=== PATIENT | female | born 1960 | race Caucasian/White ===

== ENCOUNTER 2017-06-03 13:45 | Inpatient (IN) | payer MEDICARE ==
[~2017-06-03] VITALS: Ht 154.9 cm; Wt 83.5 kg
[2017-06-03 13:40] VITALS: BP 186/77
[2017-06-03] MEDS ORDERED: fentaNYL PF VIAL 100 MCG/2 ML VIAL IV PRN (14:00)
[2017-06-03] MEDS ORDERED: fentaNYL PF VIAL 100 MCG/2 ML VIAL IV ONE (14:00)
[2017-06-03] MEDS: IV NORMAL SALINE 1000ML BAG 1,000 ML IV SCH ×2 (14:00→22:01)
[2017-06-03] MEDS ORDERED: ONDANSETRON PF 4 MG/2 ML VIAL. IV PRN (14:00)
[2017-06-03] MEDS: KETOROLAC 15 MG/ML VIAL. IV PRN (14:07)
[2017-06-03] MEDS ORDERED: ACETAMINOPHEN 325 MG TABLET. PO PRN (14:15)
[2017-06-03] MEDS ORDERED: BUPR300T3 PO (14:36)
[2017-06-03] MEDS ORDERED: TRAM50TA PO (14:36)
[2017-06-03] MEDS ORDERED: ATOR40TA59 PO (14:36)
[2017-06-03] MEDS ORDERED: GABA-586 PO (14:36)
[2017-06-03] MEDS ORDERED: ASPI325T8 PO (14:36)
[2017-06-03] MEDS ORDERED: NIFE60TA16 PO (14:36)
[2017-06-03] MEDS ORDERED: CYCL10TA2 PO (14:36)
[2017-06-03] MEDS ORDERED: OMEP20CA9 PO (14:36)
[2017-06-03] MEDS ORDERED: SUCR1TAB PO (14:36)
[2017-06-03 15:30] VITALS: BP 147/72
[2017-06-03] MEDS ORDERED: PROCHLORPERAZINE 10 MG/2 ML VIAL. IV ONE (16:30)
[2017-06-03] MEDS: fentaNYL PF VIAL 100 MCG/2 ML VIAL IV PRN ×3 (16:43→23:43)
[2017-06-03] MEDS: HYDROmorphone 2 MG/ML VIAL IV PRN ×2 (17:51→22:09)
[2017-06-03] MEDS ORDERED: HYDROmorphone 2 MG/ML VIAL IV ONE (19:00)
[2017-06-03] MEDS ORDERED: CYCLOBENZAPRINE 10 MG TABLET. PO PRN (19:15)
[2017-06-03] MEDS ORDERED: SALIVA STIMULANT AGENT 44ML SPRAY BOTTLE. PO PRN (19:15)
--- NOTE | 2017-06-03 19:17 | PDOC1 ---
History and Physical Date of Admission Date of Admission DATE: 06/03/17 TIME: 19:12 History of Present Illness History of Present Illness pt seen in [facility] earlier today, transferred here for acute abd pain CT scan there showed cholelithiasis, with poss. dilation of CBD, her abd pain started < 24 hours acute pain, stabbing 10/10, to RUQ, but diffuse across abdomen, + nausea and vomiting, + chills and feels febrile 200 mg IV fentanyl did not improve her pain no travel or sick contacts, no GI history, IV dilaudid 1.5 mg has improved pain to 7/10 Past Medical History Past Medical History COPD, no meds, Fibromyalgia, Raynauds Musculoskeletal: low back pain, Osteoarthritis Rheumatologic: Fibromyalgia Past Surgical History Past Surgical History: No pertinent history Family History Family History: Hypertension Social History Smoke: No ALCOHOL: none Drugs: None Current Medications Current Medications Current Medications Ketorolac Tromethamine (Toradol) 15 mg PRN Q6HRS PRN IV PAIN Last administered on 06/03/17 14:07; Start 06/03/17 at 14:00; Stop 06/08/17 at 13:59 Fentanyl Citrate (Fentanyl 2ml Vial) 75 mcg PRN Q2HR PRN IV PAIN Last administered on 06/03/17 15:24; Start 06/03/17 at 14:00; Stop 06/03/17 at 16:25; Status DC Fentanyl Citrate (Fentanyl 2ml Vial) 100 mcg 1X ONCE IV Last administered on 14:01; Start 06/03/17 at 14:00; Stop 06/03/17 at 14:01; Status DC Sodium Chloride 1,000 ml @ 125 mls/hr Q8H IV Last administered on 06/03/17 14: 00; Start 06/03/17 at 14:00 Ondansetron HCl (Zofran) 4 mg PRN Q6HRS PRN IV NAUSEA/VOMITING Last administered on 06/03/17 14:00; Start 06/03/17 at 14:00; Stop 06/03/17 at 16:25; Status DC Acetaminophen (Tylenol) 650 mg PRN Q6HRS PRN PO MILD PAIN / TEMP; Start at 14:15 Fentanyl Citrate (Fentanyl 2ml Vial) 100 mcg PRN Q2HR PRN IV PAIN Last administered on 06/03/17 16:43; Start 06/03/17 at 16:30 Ondansetron HCl (Zofran) 8 mg PRN Q8HRS PRN IV NAUSEA/VOMITING; Start 06/04/17 at 14:00 Prochlorperazine Edisylate (Compazine) 10 mg 1X ONCE IV Last administered on 16:43; Start 06/03/17 at 16:30; Stop 06/03/17 at 16:31; Status DC Hydromorphone HCl (Dilaudid) 1.5 mg PRN Q3HRS PRN IV PAIN Last administered on 06/03/17 17:51; Start 06/03/17 at 17:00 Hydromorphone HCl (Dilaudid) 2 mg 1X ONCE IV Last administered on 06/03/17 19: 00; Start 06/03/17 at 19:00; Stop 06/03/17 at 19:01; Status DC Saliva Substitute (Biotene Moisturizing Mouth) 2 spray PRN Q15MIN PRN PO DRY MOUTH; Start 06/03/17 at 19:15 Albuterol/ Ipratropium (Duoneb) 3 ml BID NEB ; Start 06/03/17 at 21:00 Cyclobenzaprine HCl (Flexeril) 10 mg PRN Q6HRS PRN PO MUSCLE SPASMS; Start 06/03 at 19:15 Active Scripts Active Reported Omeprazole 20 Mg Capsule.dr 1 Cap PO BID Atorvastatin Calcium 40 Mg Tablet 1 Tab PO QHS Cyclobenzaprine Hcl 10 Mg Tablet 1 Tab PO QHS Sucralfate 1 Gm Tablet 1 Tab PO QID Gabapentin 300 Mg Capsule 300 Mg PO TID Aspirin 325 Mg Tablet 325 Tab PO DAILY Nifedipine Er (Nifedipine) 60 Mg Tab.er.24 1 Tab PO DAILY Wellbutrin Xl (Bupropion Hcl) 300 Mg Tab.er.24h 1 Tab PO DAILY Tramadol Hcl 50 Mg Tablet 1 Tab PO BID Allergies Allergies: Coded Allergies: No Known Drug Allergies (Unverified , 06/03/17) ROS General: YES: Chills, Fatigue, No: Night Sweats, Malaise, Appetite, Other PSYCHOLOGICAL ROS: No: Anxiety, Behavioral Disorder, Concentration difficultie , Decreased libido, Depression, Disorientation, Hallucinations, Hostility, Irritablity, Memory difficulties, Mood Swings, Obsessive thoughts, Physical abuse, Sexual abuse, Sleep disturbances, Suicidal ideation, Other Eyes: No Blurry vision, No Decreased vision, No Double vision, No Dry eyes, No Excessive tearing, No Eye Pain, No Itchy Eyes, No Loss of vision, No Photophobia , No Scotomata, No Uses contacts, No Uses glasses, No Other HEENT: No: Heacaches, Visual Changes, Hearing change, Nasal congestion, Nasal discharge, Oral lesions, Sinus pain, Sore Throat, Epistaxis, Sneezing, Snoring, Tinnitus, Vertigo, Vocal changes, Other Respiratory: No: Cough, Hemoptysis, Orthopnea, Pleuritic Pain, Shortness of breath, SOB with excertion, Sputum Changes, Stridor, Tachypnea, Wheezing, Other Cardiovascular: No Chest Pain, No Palpitations, No Orthopnea, No Paroxysmal Noc. Dyspnea, No Edema, No Lt Headedness, No Other Gastrointestinal: Yes Nausea, Yes Vomiting, Yes Abdominal Pain, No Diarrhea, No Constipation, No Other Genitourinary: No Dysuria, No Frequency, No Incontinence, No Hematuria, No Retention, No Discharge, No Urgency, No Pain, No Flank Pain, No Other, No , No , No , No , No , No , No Musculoskeletal: No Gait Disturbance, No Joint Pain, No Joint Stiffness, No Joint Swelling, No Muscle Pain, No Muscular Weakness, No Pain In:, No Swelling In:, No Other Neurological: No Behavorial Changes, No Bowel/Bladder ControlChng, No Confusion , No Dizziness, No Gait Disturbance, No Headaches, No Impaired Coord/balance, No Memory Loss, No Numbness/Tingling, No Seizures, No Speech Problems, No Tremors, No Visual Changes, No Weakness, No Other Skin: No Dry Skin, No Eczema, No Hair Changes, No Lumps, No Mole Changes, No Mottling, No Nail Changes, No Pruritus, No Rash, No Skin Lesion Changes, No Other, No Acne Physical Exam General: Alert, Oriented X3, Cooperative, moderate distress HEENT: EOMI, Mucous membr. moist/pink Heart: no gallops, no murmurs Abdomen: Normal bowel sounds (very tender, + nicholson, + guarding) Rectal Exam: not examined Extremities: No edema, Normal pulses Neuro: Normal tone, Sensation intact, Cranial nerves 3-12 NL Psych/Mental Status: Mood NL Vitals Vitals Vital Signs Date Time Temp Pulse Resp B/P (MAP) Pulse Ox O2 Delivery O2 Flow Rate FiO2 06/03/17 19:00 Room Air 06/03/17 15:30 97.9 73 20 147/72 (97) 97 97.9 Labs Labs Laboratory Tests Test 06/03/17 17:10 Glucose (Fingerstick) 124 mg/dL (70-99) Laboratory Tests Test 06/03/17 17:10 Glucose (Fingerstick) 124 mg/dL (70-99) VTE Prophylaxis Ordered VTE Prophylaxis Devices: Yes VTE Pharmacological Prophylaxi: No Assessment/Plan Assessment/Plan ACute abd pain with nausea and vomiting CT scan from OSH showed cholelithiasis, and poss choledochalithiasis, poss dilated CBD consult GI and gen surg to follow IV pain meds npo IV fluid symptom management pain control more difficult due to fibromyalgia + obesity, BMI 34 BUZZ MORALES MD Jun 03, 2017 19:17
[2017-06-03 19:30] VITALS: BP 111/76
[2017-06-03] MEDS: IPRATRPIUM/ALBUTEROL 0.5/2.5MG 3 ML NEBU. NEB SCH (20:18)
[2017-06-03] MEDS: ONDANSETRON PF 4 MG/2 ML VIAL. IV PRN (21:32)
[2017-06-03 23:12] VITALS: BP 121/67
[2017-06-04] VITALS (14 sets, daily range): BP systolic 95–145; BP diastolic 46–78
[2017-06-04] MEDS: HYDROmorphone 2 MG/ML VIAL IV PRN ×2 (02:26→06:19)
[2017-06-04] MEDS: IV NORMAL SALINE 1000ML BAG 1,000 ML IV SCH ×3 (06:17→22:15)
[2017-06-04] MEDS ORDERED: IOHEXOL 300 MG/ML 50 ML VIAL. ONE (07:28)
[2017-06-04] MEDS ORDERED: BUPIVAC MPF-EPI 0.5%-1:200000 30 ML VIAL. ONE (07:28)
[2017-06-04] MEDS ORDERED: SURGICEL HEMOSTAT 4X8 EACH. ONE ×2 (07:28→14:25)
[2017-06-04] MEDS: IPRATRPIUM/ALBUTEROL 0.5/2.5MG 3 ML NEBU. NEB SCH ×2 (07:32→19:31)
[2017-06-04 07:34] LABS: ALBUMIN 3.1 g/dL (3.4-5.0); ALBUMIN/GLOBULIN RATIO 0.7 (1.0-1.7); CALCIUM 8.5 mg/dL (8.5-10.1); CREATININE 0.9 mg/dL (0.6-1.0); POTASSIUM 3.6 mmol/L (3.5-5.1); TOTAL BILIRUBIN 0.6 mg/dL (0.2-1.0); TOTAL PROTEIN 7.3 g/dL (6.4-8.2)
[2017-06-04 07:36] LABS: BASO # 0.1 x10^3/uL (0.0-0.2); BASO % 1 % (0-3); EOS % 1 % (0-3); HEMATOCRIT 36.5 % (36.0-47.0); HEMOGLOBIN 11.7 g/dL (12.0-15.5); LYMPH # 2.4 x10^3/uL (1.0-4.8); LYMPH % 16 % (24-48); MEAN CORPUSCULAR HEMOGLOBIN 28 pg (25-35); MEAN CORPUSCULAR HGB CONC 32 g/dL (31-37); MEAN CORPUSCULAR VOLUME 86 fL (79-100); MONO % 12 % (0-9); NEUT % 70 % (31-73); PLATELET COUNT 341 x10^3/uL (140-400); RED BLOOD COUNT 4.27 x10^6/uL (3.50-5.40); WHITE BLOOD COUNT 15.1 x10^3/uL (4.0-11.0)
--- NOTE | 2017-06-04 08:28 | PDOC2 ---
CONSULT Date of Consult Date of Consult DATE: 06/04/17 TIME: 08:24 History of Present Illness Reason for Visit: The patient is a 57 year old female who reported to the ER with abdominal pain. The pain began yesterday morning and was located in the upper abdomen. She reported associated nausea and vomiting. The pain did radiate to the back. Past Medical History Past Medical History COPD, asthma, fibromyalgia, bipolar, gastritis, gastroparesis Musculoskeletal: low back pain, Osteoarthritis Rheumatologic: Fibromyalgia Past Surgical History Past Surgical History multiple orthopedic surgeries (knees, elbows, hands, shoulders), hysterectomy, bladder suspension, breast augmentation, bladder suspension, abdominoplasty Past Surgical History: No pertinent history Family History Family History: Hypertension Social History Quit (smoked approx 18 years, quit 10 years ago) ALCOHOL: none Drugs: None Current Medications Current Medications Current Medications Ketorolac Tromethamine (Toradol) 15 mg PRN Q6HRS PRN IV PAIN Last administered on 06/03/17 14:07; Start 06/03/17 at 14:00; Stop 06/08/17 at 13:59 Fentanyl Citrate (Fentanyl 2ml Vial) 75 mcg PRN Q2HR PRN IV PAIN Last administered on 06/03/17 15:24; Start 06/03/17 at 14:00; Stop 06/03/17 at 16:25; Status DC Fentanyl Citrate (Fentanyl 2ml Vial) 100 mcg 1X ONCE IV Last administered on 14:01; Start 06/03/17 at 14:00; Stop 06/03/17 at 14:01; Status DC Sodium Chloride 1,000 ml @ 125 mls/hr Q8H IV Last administered on 06/04/17 06: 17; Start 06/03/17 at 14:00 Ondansetron HCl (Zofran) 4 mg PRN Q6HRS PRN IV NAUSEA/VOMITING Last administered on 06/03/17 14:00; Start 06/03/17 at 14:00; Stop 06/03/17 at 16:25; Status DC Acetaminophen (Tylenol) 650 mg PRN Q6HRS PRN PO MILD PAIN / TEMP; Start at 14:15 Fentanyl Citrate (Fentanyl 2ml Vial) 100 mcg PRN Q2HR PRN IV PAIN Last administered on 06/03/17 23:43; Start 06/03/17 at 16:30 Ondansetron HCl (Zofran) 8 mg PRN Q8HRS PRN IV NAUSEA/VOMITING; Start 06/04/17 at 14:00; Stop 06/04/17 at 14:00; Status DC Prochlorperazine Edisylate (Compazine) 10 mg 1X ONCE IV Last administered on 16:43; Start 06/03/17 at 16:30; Stop 06/03/17 at 16:31; Status DC Hydromorphone HCl (Dilaudid) 1.5 mg PRN Q3HRS PRN IV PAIN Last administered on 06/04/17 06:19; Start 06/03/17 at 17:00 Hydromorphone HCl (Dilaudid) 2 mg 1X ONCE IV Last administered on 06/03/17 19: 00; Start 06/03/17 at 19:00; Stop 06/03/17 at 19:01; Status DC Saliva Substitute (Biotene Moisturizing Mouth) 2 spray PRN Q15MIN PRN PO DRY MOUTH Last administered on 06/03/17 21:31; Start 06/03/17 at 19:15 Albuterol/ Ipratropium (Duoneb) 3 ml BID NEB Last administered on 06/04/17 07: 32; Start 06/03/17 at 21:00 Cyclobenzaprine HCl (Flexeril) 10 mg PRN Q6HRS PRN PO MUSCLE SPASMS; Start 06/03 at 19:15 Ondansetron HCl (Zofran) 8 mg PRN Q8HRS PRN IV NAUSEA/VOMITING Last administered on 06/03/17 21:32; Start 06/03/17 at 20:45 Cellulose 1 each STK-MED ONCE .ROUTE ; Start 06/04/17 at 07:28; Stop 06/04/17 at 07:29; Status DC Bupivacaine HCl/ Epinephrine Bitart (Sensorcain-Mpf Epi 0.5%-1:455100) 30 ml STK -MED ONCE .ROUTE ; Start 06/04/17 at 07:28; Stop 06/04/17 at 07:29; Status DC Iohexol (Omnipaque 300 Mg/ml) 50 ml STK-MED ONCE .ROUTE ; Start 06/04/17 at 07:28 ; Stop 06/04/17 at 07:29; Status DC Active Scripts Active Reported Omeprazole 20 Mg Capsule.dr 1 Cap PO BID Atorvastatin Calcium 40 Mg Tablet 1 Tab PO QHS Cyclobenzaprine Hcl 10 Mg Tablet 1 Tab PO QHS Sucralfate 1 Gm Tablet 1 Tab PO QID Gabapentin 300 Mg Capsule 300 Mg PO TID Aspirin 325 Mg Tablet 325 Tab PO DAILY Nifedipine Er (Nifedipine) 60 Mg Tab.er.24 1 Tab PO DAILY Wellbutrin Xl (Bupropion Hcl) 300 Mg Tab.er.24h 1 Tab PO DAILY Tramadol Hcl 50 Mg Tablet 1 Tab PO BID Allergies Allergies: Coded Allergies: No Known Drug Allergies (Unverified , 06/03/17) ROS General: No: Chills, Night Sweats, Fatigue, Malaise, Appetite, Other PSYCHOLOGICAL ROS: No: Anxiety, Behavioral Disorder, Concentration difficultie , Decreased libido, Depression, Disorientation, Hallucinations, Hostility, Irritablity, Memory difficulties, Mood Swings, Obsessive thoughts, Physical abuse, Sexual abuse, Sleep disturbances, Suicidal ideation, Other Eyes: No Blurry vision, No Decreased vision, No Double vision, No Dry eyes, No Excessive tearing, No Eye Pain, No Itchy Eyes, No Loss of vision, No Photophobia , No Scotomata, No Uses contacts, No Uses glasses, No Other HEENT: No: Heacaches, Visual Changes, Hearing change, Nasal congestion, Nasal discharge, Oral lesions, Sinus pain, Sore Throat, Epistaxis, Sneezing, Snoring, Tinnitus, Vertigo, Vocal changes, Other ALLERGY AND IMMUNOLOGY: No: Hives, Insect Bite Sensitivity, Itchy/Watery Eyes, Nasal Congestion, Post Nasal Drip, Seasonal Allergies, Other Hematological and Lymphatic: No: Bleeding Problems, Blood Clots, Blood Transfusions, Brusing, Night Sweats, Pallor, Swollen Lymph Nodes, Other ENDOCRINE: No: Breast Changes, Galactorrhea, Hair Pattern Changes, Hot Flashes , Malaise/lethargy, Mood Swings, Palpitations, Polydipsia/polyuria, Skin Changes , Temperature Intolerance, Unexpected Weight Changes, Other Respiratory: No: Cough, Hemoptysis, Orthopnea, Pleuritic Pain, Shortness of breath, SOB with excertion, Sputum Changes, Stridor, Tachypnea, Wheezing, Other Cardiovascular: No Chest Pain, No Palpitations, No Orthopnea, No Paroxysmal Noc. Dyspnea, No Edema, No Lt Headedness, No Other Gastrointestinal: Yes Nausea, Yes Vomiting, Yes Abdominal Pain Genitourinary: No Dysuria, No Frequency, No Incontinence, No Hematuria, No Retention, No Discharge, No Urgency, No Pain, No Flank Pain, No Other, No , No , No , No , No , No , No Musculoskeletal: No Gait Disturbance, No Joint Pain, No Joint Stiffness, No Joint Swelling, No Muscle Pain, No Muscular Weakness, No Pain In:, No Swelling In:, No Other Neurological: No Behavorial Changes, No Bowel/Bladder ControlChng, No Confusion , No Dizziness, No Gait Disturbance, No Headaches, No Impaired Coord/balance, No Memory Loss, No Numbness/Tingling, No Seizures, No Speech Problems, No Tremors, No Visual Changes, No Weakness, No Other Skin: No Dry Skin, No Eczema, No Hair Changes, No Lumps, No Mole Changes, No Mottling, No Nail Changes, No Pruritus, No Rash, No Skin Lesion Changes, No Other, No Acne Physical Exam General: Alert, Oriented X3, Cooperative HEENT: Atraumatic Lungs: Clear to auscultation Heart: Regular rate Abdomen: Soft (tender bilateral upper quadrants) Extremities: No clubbing, No cyanosis Skin: No rashes Neuro: Normal gait, Normal speech Psych/Mental Status: Mental status NL MUSCULOSKELETAL: No joint tenderness, No deformity Vitals VITALS Vital Signs Date Time Temp Pulse Resp B/P (MAP) Pulse Ox O2 Delivery O2 Flow Rate FiO2 06/04/17 07:33 97 Nasal Cannula 2.0 06/04/17 07:04 18 06/04/17 07:00 98.1 90 131/74 (93) 98.1 Labs Labs Laboratory Tests Test 06/03/17 17:10 06/03/17 20:30 06/04/17 07:05 06/04/17 07:29 Glucose (Fingerstick) 124 mg/dL (70-99) 123 mg/dL (70-99) 154 mg/dL (70-99) White Blood Count 15.1 x10^3/uL (4.0-11.0) Red Blood Count 4.27 x10^6/uL (3.50-5.40) Hemoglobin 11.7 g/dL (12.0-15.5) Hematocrit 36.5 % (36.0-47.0) Mean Corpuscular Volume 86 fL (79-100) Mean Corpuscular Hemoglobin 28 pg (25-35) Mean Corpuscular Hemoglobin Concent 32 g/dL (31-37) Red Cell Distribution Width 15.0 % (11.5-14.5) Platelet Count 341 x10^3/uL (140-400) Neutrophils (%) (Auto) 70 % (31-73) Lymphocytes (%) (Auto) 16 % (24-48) Monocytes (%) (Auto) 12 % (0-9) Eosinophils (%) (Auto) 1 % (0-3) Basophils (%) (Auto) 1 % (0-3) Neutrophils # (Auto) 10.5 x10^3uL (1.8-7.7) Lymphocytes # (Auto) 2.4 x10^3/uL (1.0-4.8) Monocytes # (Auto) 1.8 x10^3/uL (0.0-1.1) Eosinophils # (Auto) 0.2 x10^3/uL (0.0-0.7) Basophils # (Auto) 0.1 x10^3/uL (0.0-0.2) Sodium Level 138 mmol/L (136-145) Potassium Level 3.6 mmol/L (3.5-5.1) Chloride Level 103 mmol/L (98-107) Carbon Dioxide Level 25 mmol/L (21-32) Anion Gap 10 (6-14) Blood Urea Nitrogen 11 mg/dL (7-20) Creatinine 0.9 mg/dL (0.6-1.0) Estimated GFR (Cockcroft-Gault) 65.0 BUN/Creatinine Ratio 12 (6-20) Glucose Level 152 mg/dL (70-99) Calcium Level 8.5 mg/dL (8.5-10.1) Total Bilirubin 0.6 mg/dL (0.2-1.0) Aspartate Amino Transf (AST/SGOT) 20 U/L (15-37) Alanine Aminotransferase (ALT/SGPT) 30 U/L (14-59) Alkaline Phosphatase 110 U/L (46-116) Total Protein 7.3 g/dL (6.4-8.2) Albumin 3.1 g/dL (3.4-5.0) Albumin/Globulin Ratio 0.7 (1.0-1.7) Laboratory Tests Test 06/03/17 17:10 06/03/17 20:30 06/04/17 07:05 06/04/17 07:29 Glucose (Fingerstick) 124 mg/dL (70-99) 123 mg/dL (70-99) 154 mg/dL (70-99) White Blood Count 15.1 x10^3/uL (4.0-11.0) Red Blood Count 4.27 x10^6/uL (3.50-5.40) Hemoglobin 11.7 g/dL (12.0-15.5) Hematocrit 36.5 % (36.0-47.0) Mean Corpuscular Volume 86 fL (79-100) Mean Corpuscular Hemoglobin 28 pg (25-35) Mean Corpuscular Hemoglobin Concent 32 g/dL (31-37) Red Cell Distribution Width 15.0 % (11.5-14.5) Platelet Count 341 x10^3/uL (140-400) Neutrophils (%) (Auto) 70 % (31-73) Lymphocytes (%) (Auto) 16 % (24-48) Monocytes (%) (Auto) 12 % (0-9) Eosinophils (%) (Auto) 1 % (0-3) Basophils (%) (Auto) 1 % (0-3) Neutrophils # (Auto) 10.5 x10^3uL (1.8-7.7) Lymphocytes # (Auto) 2.4 x10^3/uL (1.0-4.8) Monocytes # (Auto) 1.8 x10^3/uL (0.0-1.1) Eosinophils # (Auto) 0.2 x10^3/uL (0.0-0.7) Basophils # (Auto) 0.1 x10^3/uL (0.0-0.2) Sodium Level 138 mmol/L (136-145) Potassium Level 3.6 mmol/L (3.5-5.1) Chloride Level 103 mmol/L (98-107) Carbon Dioxide Level 25 mmol/L (21-32) Anion Gap 10 (6-14) Blood Urea Nitrogen 11 mg/dL (7-20) Creatinine 0.9 mg/dL (0.6-1.0) Estimated GFR (Cockcroft-Gault) 65.0 BUN/Creatinine Ratio 12 (6-20) Glucose Level 152 mg/dL (70-99) Calcium Level 8.5 mg/dL (8.5-10.1) Total Bilirubin 0.6 mg/dL (0.2-1.0) Aspartate Amino Transf (AST/SGOT) 20 U/L (15-37) Alanine Aminotransferase (ALT/SGPT) 30 U/L (14-59) Alkaline Phosphatase 110 U/L (46-116) Total Protein 7.3 g/dL (6.4-8.2) Albumin 3.1 g/dL (3.4-5.0) Albumin/Globulin Ratio 0.7 (1.0-1.7) Assessment/Plan Assessment/Plan Upper abdominal pain, gallstones, suspect cholecystitis; recommend laparoscopic cholecystectomy, I reviewed the details and risks of surgery with the patient. She understands and would like to proceed. ALISSA PADILLA MD Jun 04, 2017 08:28
[2017-06-04] MEDS: ONDANSETRON PF 4 MG/2 ML VIAL. IV PRN ×2 (08:47→10:45)
[2017-06-04] MEDS: KETOROLAC 15 MG/ML VIAL. IV PRN ×2 (08:48→19:54)
[2017-06-04] MEDS: PIPERACILLIN/TAZOBACTAM 3.375 GM in IV NORMAL SALINE 50ML 50 ML IV SCH ×3 (09:00→18:20)
--- NOTE | 2017-06-04 09:51 | PDOC2 ---
GI CONSULT Reason For Consult: Choledocholithiasis HPI: HPI: 57 y/o female transferred from [facility]. At 3:00 a.m. yesterday morning had acute onset of upper abd pain radiating to back w/ n/v. Had CT A/P @ [facility], showed cholelithiasis. WBC is 15.1, LFTs and lipase are normal. Possible cholecystectomy w/ IOC this afternoon. GI asked to see re: choledocholithiasis , no mention of this on imaging. Has been seen by Dr. Arrieta. Had EGD 3 weeks ago, says she has "gastritis" although I believe she might be referring to gastroparesis. (GES in 2015 was delayed w/ T1/2 150 min.) She also says she has "lots" of ulcers "that just come back." GI-mcneal, she takes a medication QID (?sucralfate) and also take another BID (cannot recall name, doesn't recognize PPIs), [facility] notes indicate Tums. She recalls trying a "medication from [facility]" (Domperidone) that was ineffective, not sure about Reglan/metoclopramide. Has reflux. Occasional constipation improved w/ Miralax. Reports normal colonoscopy ~2 years ago. PMH: PMH: COPD, fibromylagia, Raynaud's, hysterectomy, bladder suspension, elbow surgery, shoulder surgery, knee surgery, hand surgery, breast augmentation, abdominoplasty FH: Family History: Cancer (prostate) Social History: Smoke: Quit ALCOHOL: none Drugs: None ROS: GEN: Denies fevers, chills, sweats HEENT: Denies blurred vision, sore throat CV: Denies chest pain RESP: Denies shortness of air, cough GI: Per HPI : Denies hematuria, dysuria ENDO: Denies weight changes NEURO: Denies confusion, dizziness MSK: Denies weakness, joint pain/swelling SKIN: Denies jaundice, pruritus Vitals: Vitals: Vital Signs Date Time Temp Pulse Resp B/P (MAP) Pulse Ox O2 Delivery O2 Flow Rate FiO2 06/04/17 07:33 97 Nasal Cannula 2.0 06/04/17 07:04 18 06/04/17 07:00 98.1 90 131/74 (93) 98.1 Labs: Labs: Laboratory Tests Test 8/6/17 17:10 06/03/17 20:30 06/04/17 07:05 06/04/17 07:29 Glucose (Fingerstick) 124 mg/dL (70-99) 123 mg/dL (70-99) 154 mg/dL (70-99) White Blood Count 15.1 x10^3/uL (4.0-11.0) Red Blood Count 4.27 x10^6/uL (3.50-5.40) Hemoglobin 11.7 g/dL (12.0-15.5) Hematocrit 36.5 % (36.0-47.0) Mean Corpuscular Volume 86 fL (79-100) Mean Corpuscular Hemoglobin 28 pg (25-35) Mean Corpuscular Hemoglobin Concent 32 g/dL (31-37) Red Cell Distribution Width 15.0 % (11.5-14.5) Platelet Count 341 x10^3/uL (140-400) Neutrophils (%) (Auto) 70 % (31-73) Lymphocytes (%) (Auto) 16 % (24-48) Monocytes (%) (Auto) 12 % (0-9) Eosinophils (%) (Auto) 1 % (0-3) Basophils (%) (Auto) 1 % (0-3) Neutrophils # (Auto) 10.5 x10^3uL (1.8-7.7) Lymphocytes # (Auto) 2.4 x10^3/uL (1.0-4.8) Monocytes # (Auto) 1.8 x10^3/uL (0.0-1.1) Eosinophils # (Auto) 0.2 x10^3/uL (0.0-0.7) Basophils # (Auto) 0.1 x10^3/uL (0.0-0.2) Sodium Level 138 mmol/L (136-145) Potassium Level 3.6 mmol/L (3.5-5.1) Chloride Level 103 mmol/L (98-107) Carbon Dioxide Level 25 mmol/L (21-32) Anion Gap 10 (6-14) Blood Urea Nitrogen 11 mg/dL (7-20) Creatinine 0.9 mg/dL (0.6-1.0) Estimated GFR (Cockcroft-Gault) 65.0 BUN/Creatinine Ratio 12 (6-20) Glucose Level 152 mg/dL (70-99) Calcium Level 8.5 mg/dL (8.5-10.1) Total Bilirubin 0.6 mg/dL (0.2-1.0) Aspartate Amino Transf (AST/SGOT) 20 U/L (15-37) Alanine Aminotransferase (ALT/SGPT) 30 U/L (14-59) Alkaline Phosphatase 110 U/L (46-116) Total Protein 7.3 g/dL (6.4-8.2) Albumin 3.1 g/dL (3.4-5.0) Albumin/Globulin Ratio 0.7 (1.0-1.7) Allergies: Coded Allergies: No Known Drug Allergies (Unverified , 06/03/17) Medications: Current Medications Medications (Trade) Dose Ordered Sig/Mary Beth Route PRN Reason Start Time Stop Time Status Last Admin Dose Admin Ketorolac Tromethamine (Toradol) 15 mg PRN Q6HRS PRN IV PAIN 06/03/17 14:00 06/08/17 13:59 06/04/17 08:48 Fentanyl Citrate (Fentanyl 2ml Vial) 75 mcg PRN Q2HR PRN IV PAIN 06/03/17 14:00 06/03/17 16:25 DC 06/03/17 15:24 Fentanyl Citrate (Fentanyl 2ml Vial) 100 mcg 1X ONCE IV 06/03/17 14:00 06/03/17 14:01 DC 06/03/17 14:01 Sodium Chloride 1,000 ml @ 125 mls/hr Q8H IV 06/03/17 14:00 06/04/17 06:17 Ondansetron HCl (Zofran) 4 mg PRN Q6HRS PRN IV NAUSEA/VOMITING 06/03/17 14:00 06/03/17 16:25 DC 06/03/17 14:00 Fentanyl Citrate (Fentanyl 2ml Vial) 100 mcg PRN Q2HR PRN IV PAIN 06/03/17 16:30 06/03/17 23:43 Prochlorperazine Edisylate (Compazine) 10 mg 1X ONCE IV 06/03/17 16:30 06/03/17 16:31 DC 06/03/17 16:43 Hydromorphone HCl (Dilaudid) 1.5 mg PRN Q3HRS PRN IV PAIN 06/03/17 17:00 06/04/17 06:19 Hydromorphone HCl (Dilaudid) 2 mg 1X ONCE IV 06/03/17 19:00 06/03/17 19:01 DC 06/03/17 19:00 Saliva Substitute (Biotene Moisturizing Mouth) 2 spray PRN Q15MIN PRN PO DRY MOUTH 06/03/17 19:15 06/03/17 21:31 Albuterol/ Ipratropium (Duoneb) 3 ml BID NEB 06/03/17 21:00 06/04/17 07:32 Ondansetron HCl (Zofran) 8 mg PRN Q8HRS PRN IV NAUSEA/VOMITING 06/03/17 20:45 06/04/17 08:47 Imaging: Imaging: Per HPI. PE: GEN: NAD HEENT: Atraumatic, PERRL LUNGS: CTAB HEART: RRR ABD: NABS, epigastric and RUQ tenderness, less so LUQ EXTREMITY: No edema SKIN: No rashes, no jaundice NEURO/PSYCH: A & O 3 A/P: A/P: Cholelithiasis -noted on CT @ [facility] -normal LFTs, lipase Upper abd pain, n/v Gastroparesis -abnormal GES 2014, seems untreated w/ previously failed treatments ?PUD/gastritis -EGD 3 weeks ago w/ Dr. Arrieta CRC screen -reports normal colonoscopy ~2 years ago -- Await cholecystectomy w/ IOC, consider ERCP if indicated. Will start IV H2 angi, no PPI available IV. Will ask for records of recent EGD. MARIE VIEIRA Jun 04, 2017 09:50
[2017-06-04] MEDS: FAMOTIDINE 20 MG/2 ML VIAL IVP SCH ×2 (10:56→19:54)
--- NOTE | 2017-06-04 11:42 | PDOC ---
PROGRESS NOTES Chief Complaint Chief Complaint Cholelithiasis ASSESSMENT AND PLAN: 1. Cholelithiasis: with poss. dilation of CBD. lap CCY today, poss ERCP is needed. appreciate GI/surgical services' help with management 2. Pain control: narcotics PRN, try to keep PO if possible 3, COPD: no home meds 4, Fibromyalgia: on neurontin 5. OA: chronic LBP: cont home regimen History of Present Illness History of Present Illness c/o abd pain, no nausea Vitals Vitals Vital Signs Date Time Temp Pulse Resp B/P (MAP) Pulse Ox O2 Delivery O2 Flow Rate FiO2 06/04/17 11:00 97.9 83 20 95/51 (66) 94 Nasal Cannula 2.0 97.9 Physical Exam General: Alert, Oriented X3, Cooperative Heart: Regular rate Lungs: Clear Abdomen: Soft (tender bilateral upper quadrants), Other (TTP throughout, mild) Extremities: No clubbing, No cyanosis Skin: No rashes Labs LABS Laboratory Tests Test 06/03/17 17:10 06/03/17 20:30 06/04/17 07:05 06/04/17 07:29 Glucose (Fingerstick) 124 mg/dL (70-99) 123 mg/dL (70-99) 154 mg/dL (70-99) White Blood Count 15.1 x10^3/uL (4.0-11.0) Red Blood Count 4.27 x10^6/uL (3.50-5.40) Hemoglobin 11.7 g/dL (12.0-15.5) Hematocrit 36.5 % (36.0-47.0) Mean Corpuscular Volume 86 fL (79-100) Mean Corpuscular Hemoglobin 28 pg (25-35) Mean Corpuscular Hemoglobin Concent 32 g/dL (31-37) Red Cell Distribution Width 15.0 % (11.5-14.5) Platelet Count 341 x10^3/uL (140-400) Neutrophils (%) (Auto) 70 % (31-73) Lymphocytes (%) (Auto) 16 % (24-48) Monocytes (%) (Auto) 12 % (0-9) Eosinophils (%) (Auto) 1 % (0-3) Basophils (%) (Auto) 1 % (0-3) Neutrophils # (Auto) 10.5 x10^3uL (1.8-7.7) Lymphocytes # (Auto) 2.4 x10^3/uL (1.0-4.8) Monocytes # (Auto) 1.8 x10^3/uL (0.0-1.1) Eosinophils # (Auto) 0.2 x10^3/uL (0.0-0.7) Basophils # (Auto) 0.1 x10^3/uL (0.0-0.2) Sodium Level 138 mmol/L (136-145) Potassium Level 3.6 mmol/L (3.5-5.1) Chloride Level 103 mmol/L (98-107) Carbon Dioxide Level 25 mmol/L (21-32) Anion Gap 10 (6-14) Blood Urea Nitrogen 11 mg/dL (7-20) Creatinine 0.9 mg/dL (0.6-1.0) Estimated GFR (Cockcroft-Gault) 65.0 BUN/Creatinine Ratio 12 (6-20) Glucose Level 152 mg/dL (70-99) Calcium Level 8.5 mg/dL (8.5-10.1) Total Bilirubin 0.6 mg/dL (0.2-1.0) Aspartate Amino Transf (AST/SGOT) 20 U/L (15-37) Alanine Aminotransferase (ALT/SGPT) 30 U/L (14-59) Alkaline Phosphatase 110 U/L (46-116) Total Protein 7.3 g/dL (6.4-8.2) Albumin 3.1 g/dL (3.4-5.0) Albumin/Globulin Ratio 0.7 (1.0-1.7) PRAKASH MALDONADO MD Jun 04, 2017 11:42
[2017-06-04] MEDS: fentaNYL PF VIAL 100 MCG/2 ML VIAL IV PRN (12:16)
[2017-06-04] MEDS ORDERED: ONDANSETRON PF 4 MG/2 ML VIAL. ONE (13:31)
[2017-06-04] MEDS ORDERED: LIDOCAINE 2% PF Vial for OR 5 ML VIAL. ONE (13:31)
[2017-06-04] MEDS ORDERED: DEXAMETHASONE SOD PHOS 20 MG/5 ML VIAL. ONE (13:31)
[2017-06-04] MEDS ORDERED: PROPOFOL 20 ML IV ONE (13:31)
[2017-06-04] MEDS ORDERED: fentaNYL PF VIAL 100 MCG/2 ML VIAL ONE ×2 (13:32→14:19)
[2017-06-04] MEDS ORDERED: ROCURONIUM 100 MG/10 ML VIAL. ONE (13:32)
[2017-06-04] MEDS ORDERED: FAMOTIDINE 20 MG/2 ML VIAL ONE (13:39)
[2017-06-04] MEDS ORDERED: ONDANSETRON PF 4 MG/2 ML VIAL. IV PRN (14:00)
[2017-06-04] MEDS ORDERED: GLYCOPYRROLATE 1 MG/5 ML VIAL. ONE (14:07)
[2017-06-04] MEDS ORDERED: NEOSTIGMINE 10 MG/10 ML VIAL. ONE ×2 (14:07→14:11)
[2017-06-04] MEDS ORDERED: ESMOLOL 100 MG/10 ML VIAL. IV ONE (14:36)
--- NOTE | 2017-06-04 15:23 | PDOC4 ---
Operative Note Operative Note Operative Note: Preoperative Diagnosis: Calculus cholecystitis Postoperative Diagnosis: Severe acute and chronic cholecystitis Procedure: Laparoscopic cholecystectomy Surgeons: Bryce [place] Naturalist: Elaine MORALES Anesthesia: Gen. Estimated Blood Loss: 50 mL Specimen: Gallbladder to pathology Drains: 19 Guamanian round Kranthi drain to right upper quadrant Complications: None Indications: The patient is a 57-year-old female who is been experiencing recurrent upper abdominal pain consistent with biliary colic. Her evaluation identified gallstones with concern over possible cholecystitis. Surgical treatment was offered by means of a laparoscopic cholecystectomy. The risks of surgery were discussed which include bleeding, infection, bile duct injury, bile leak, pain, the potential for additional surgeries or procedures. The patient understands and would like to proceed. Description: The patient was taken to the operating room and laid supine on the operating table. General anesthesia was performed. The abdomen was prepped with ChloraPrep and draped in a standard surgical fashion. A small incision was made in the patient's right abdomen through which a visualized 5 mm trocar was inserted and a pneumoperitoneum was created. The laparoscope was then introduced. In the upper midabdomen an 11 mm trocar was inserted. In the right abdomen two 5 mm trochars were inserted. The gallbladder initially could not be seen and was obscured due to adherent omentum. We peeled the omentum away and found fairly dense chronic adhesions to the gallbladder wall. The appearance seemed to suggest a prominent acute and chronic inflammatory reaction. The gallbladder wall was markedly thickened and fibrotic as well. The gallbladder was retracted cephalad. The patient had marked inflammatory change of the pericholecystic tissue as well which made anatomy identification difficult. There was a fibrotic rind surrounding much of the pericholecystic tissue. We kept the dissection close to the wall of the gallbladder and carefully proceeded. Gradually we were able to identify a very short cystic duct and its junction with the common bile duct which was in very close proximity. The cystic duct was fully mobilized and seen to clearly enter the gallbladder. Our intention was to perform a cholangiogram however the duct was so short that we were concerned that a cholangiogram may sacrifice some length making it difficult to secure. We elected to forego the cholangiogram. Two clips were placed on the cystic duct and it was divided. The cystic artery was then identified medially and carefully dissected free. Two clips were applied and the cystic artery was divided. The gallbladder was then mobilized away from the liver with cautery. This was also difficult as the normal tissue planes were completely obscured from the inflammatory reaction. We were eventually able to fully mobilize the gallbladder and it was placed in an endoscopic bag. Surgicel pack was placed on the gallbladder fossa to assist with hemostasis. A 19 Gu[place]ian round Kranthi drain was left in the right upper quadrant which exited at the right lateral port incision. This was secured to the skin with 2-0 silk. The gallbladder was then extracted at the superior mid abdominal incision. The fascia and skin incisions had to be extended to allow for delivery of the thickened gallbladder. The fascia was then reapproximated with interrupted 0 PDS sutures. The laparoscope was then reintroduced and hemostasis appeared good and the drain remained well in place. The remaining ports were removed and the pneumoperitoneum was relieved. The skin incisions were injected with half percent Marcaine with epinephrine, and all were closed using 4-0 Monocryl suture. Steri-Strips and dressings were then applied. The patient tolerated the procedure well and was sent to the recovery room in stable condition. At the end of the case all counts were correct. ALISSA PADILLA MD Jun 04, 2017 15:23
[2017-06-04] MEDS ORDERED: oxyCODONE/APAP 5/325 1 TAB TABLET PO PRN (15:30)
[2017-06-04] MEDS ORDERED: ALBUTEROL SULFATE 2.5 MG/3 ML NEBU. NEB ONE (16:00)
[2017-06-04] MEDS: oxyCODONE/APAP 5/325 1 TAB TABLET PO PRN ×2 (18:19→22:15)
[2017-06-04] MEDS ORDERED: fentaNYL PF VIAL 100 MCG/2 ML VIAL IV PRN (19:00)
[2017-06-05] MEDS: PIPERACILLIN/TAZOBACTAM 3.375 GM in IV NORMAL SALINE 50ML 50 ML IV SCH ×5 (00:01→23:39)
--- NOTE | 2017-06-05 00:53 | ACF ---
Admission Forms Criteria GALLBLADDER OR BILE DUCT INFLAMMATION OR STONE Clinical Indications for Admission to Inpatient Care ( Place 'X' for any and all applicable criteria): Admission is indicated for patients with ANY ONE of the following(1)(2)(3)(4)(5) : [ ]I. Acute cholecystitis as indicated by ALL of the following: [ ]a) Right upper quadrant pain, mass, or tenderness [ ]b) Systemic signs of inflammation indicated by ANY ONE of the following: [ ]i) Fever [ ]ii) C-reactive protein level greater than 10 mg/L (95 nmol/L) [ ]iii) White blood cell count greater than 10,000/mm3 (10 x109/L) or less than 4000/mm3 (4 x109/L) [ X]II. Inpatient admission required rather than observation care (Also use Gallbladder or Bile Duct Inflammation or Stone: Observation Care as appropriate) because of ANY ONE of the following: [ ]a) Common bile duct obstruction diagnosed [ ]b) Vomiting that is severe or persistent [X ]c) Severe pain requiring acute inpatient management [ ]d) Signs of intestinal obstruction or peritonitis [A] [ ]e) Severe electrolyte abnormalities requiring inpatient care [ ]f) Absent bowel sounds with complete ileus(8) [ ]g) Hemodynamic instability [ ]h) High fever or infection requiring inpatient admission as indicated by ANY ONE of the following (9): [ ]1) Appropriate outpatient or observation care antimicrobial Treatment. unavailable, not effective, or not feasible [ ]2) Temperature greater than 104.9 degrees F (40.5 degrees C) (oral) [ ]3) Temperature greater than 103.1 degrees F (39.5 degrees C) (oral) or less than 96.8 degrees F (36 degrees C) (rectal) that does not respond to all emergency treatment measures [ ]4) Documented bacteremia [ ]i) IV fluid to replace significant ongoing losses (greater than 3 L/m2 per day) [ ]j) Percutaneous or open drainage (eg, abscess, biliary tract) procedures [ ]k) Immediate inpatient surgery [ ]l) Other condition, treatment or monitoring requiring inpatient admission [ ]III. Acute cholangitis as indicated by ALL of the following(9)(10): [ ]a) Systemic signs of inflammation indicated by ANY ONE of the following: [ ]i) Fever [ ]ii) C-reactive protein level greater than 10 mg/L (95 nmol /L) [ ]iii) White blood cell count greater than 10,000/mm3 (10 x109/L) or less than 4000/mm3 (4 x109/L) [ ]b) Evidence of common bile duct disease indicated by ANY ONE of the following: [ ]i) Total serum bilirubin level greater than or equal to 2 mg/dL (34 micromoles/L) [ ]ii) Liver function test (alkaline phosphatase (ALP), r- glutamyltransferase (GGT), aspartate aminotransferase (AST), or alanine aminotransferase (ALT)) greater than 1.5 times the upper limit of normal[B] [ ]iii) Hepatobiliary imaging showing biliary dilatation or evidence of etiology (eg, stricture, stone, previously placed stent) Extended stay beyond goal length of stay may be needed for (1)(2)): [ ]a) Bacteremia or Hemodynamic instability [ ]b) Cholecystectomy [ ]c) Other surgical procedure(24) [ ]d) Percutaneous or endoscopic ultrasound-guided cholecystostomy The original [facility] content created by [facility] has been revised. The portions of the content which have been revised are identified through the use of italic text or in bold, and [facility] has neither reviewed nor approved the modified material. All other unmodified content is copyright [facility]. Please see references footnoted in the original [facility] edition 2016 Admission Criteria Met?: Yes EMILY KWOK Jun 05, 2017 00:53
[2017-06-05] MEDS: oxyCODONE/APAP 5/325 1 TAB TABLET PO PRN ×5 (02:26→22:00)
[2017-06-05 03:00] VITALS: BP 120/63
[2017-06-05 05:16] LABS: BASO % 0 % (0-3); EOS % 0 % (0-3); HEMATOCRIT 33.8 % (36.0-47.0); HEMOGLOBIN 10.9 g/dL (12.0-15.5); LYMPH # 1.9 x10^3/uL (1.0-4.8); LYMPH % 12 % (24-48); MEAN CORPUSCULAR HEMOGLOBIN 28 pg (25-35); MEAN CORPUSCULAR HGB CONC 32 g/dL (31-37); MEAN CORPUSCULAR VOLUME 86 fL (79-100); MONO % 9 % (0-9); NEUT % 80 % (31-73); PLATELET COUNT 312 x10^3/uL (140-400); RED BLOOD COUNT 3.92 x10^6/uL (3.50-5.40); RED CELL DISTRIBUTION WIDTH 14.9 % (11.5-14.5)
[2017-06-05 05:39] LABS: ALBUMIN 2.8 g/dL (3.4-5.0); ALBUMIN/GLOBULIN RATIO 0.6 (1.0-1.7); CALCIUM 8.6 mg/dL (8.5-10.1); GFR 57.6; POTASSIUM 3.5 mmol/L (3.5-5.1); TOTAL BILIRUBIN 0.4 mg/dL (0.2-1.0); TOTAL PROTEIN 7.2 g/dL (6.4-8.2)
[2017-06-05] MEDS: IV NORMAL SALINE 1000ML BAG 1,000 ML IV SCH (06:04)
[2017-06-05 07:00] VITALS: BP 126/54
[2017-06-05] MEDS: IPRATRPIUM/ALBUTEROL 0.5/2.5MG 3 ML NEBU. NEB SCH ×2 (08:14→19:50)
[2017-06-05 08:37] LABS: ANISOCYTOSIS SLIGHT; PLT ESTIMATE ADEQUATE (ADEQUATE)
[2017-06-05] MEDS: FAMOTIDINE 20 MG/2 ML VIAL IVP SCH (08:38)
--- NOTE | 2017-06-05 10:58 | PDOC ---
Subjective: Subjective: Right-sided abd pain w/ coughing. Tolerating PO w/ mild nausea, no vomiting. No flatus. Objective: Vital Signs: Vital Signs Date Time Temp Pulse Resp B/P (MAP) Pulse Ox O2 Delivery O2 Flow Rate FiO2 06/05/17 10:26 Nasal Cannula 2.0 06/05/17 08:15 96 06/05/17 07:00 97.5 89 22 126/54 (78) 97.5 Labs: Laboratory Tests Test 06/04/17 16:17 06/05/17 04:45 Glucose (Fingerstick) 175 mg/dL White Blood Count 17.0 x10^3/uL Red Blood Count 3.92 x10^6/uL Hemoglobin 10.9 g/dL Hematocrit 33.8 % Mean Corpuscular Volume 86 fL Mean Corpuscular Hemoglobin 28 pg Mean Corpuscular Hemoglobin Concent 32 g/dL Red Cell Distribution Width 14.9 % Platelet Count 312 x10^3/uL Neutrophils (%) (Auto) 80 % Lymphocytes (%) (Auto) 12 % Monocytes (%) (Auto) 9 % Eosinophils (%) (Auto) 0 % Basophils (%) (Auto) 0 % Neutrophils # (Auto) 13.5 x10^3uL Lymphocytes # (Auto) 1.9 x10^3/uL Monocytes # (Auto) 1.5 x10^3/uL Eosinophils # (Auto) 0.0 x10^3/uL Basophils # (Auto) 0.0 x10^3/uL Segmented Neutrophils % 85 % Band Neutrophils % 5 % Lymphocytes % 6 % Monocytes % 4 % Platelet Estimate Adequate Anisocytosis Slight Sodium Level 141 mmol/L Potassium Level 3.5 mmol/L Chloride Level 105 mmol/L Carbon Dioxide Level 25 mmol/L Anion Gap 11 Blood Urea Nitrogen 9 mg/dL Creatinine 1.0 mg/dL Estimated GFR (Cockcroft-Gault) 57.6 BUN/Creatinine Ratio 9 Glucose Level 132 mg/dL Calcium Level 8.6 mg/dL Total Bilirubin 0.4 mg/dL Aspartate Amino Transf (AST/SGOT) 42 U/L Alanine Aminotransferase (ALT/SGPT) 48 U/L Alkaline Phosphatase 104 U/L Total Protein 7.2 g/dL Albumin 2.8 g/dL Albumin/Globulin Ratio 0.6 PE: GEN: NAD LUNGS: clear HEART: RRR ABD: MARINA serosang, tenderness surrounding NEURO/PSYCH: A & O 3 A/P: Calculous cholecystitis s/p cholecystectomy 06/04/17 -labs stable/normal -some post-op pain Normocytic anemia -EGD w/ Dr. Arrieta 3 weeks ago (?PUD/gastritis), last colonoscopy ~2 years ago Gastroparesis -abnormal GES 2014, previously tried ?Reglan and Domperidone (ineffective) -- Continue per surgery. Taking PO so will stop IV H2 angi, add PO PPI. MARIE VIEIRA Jun 05, 2017 10:58
[2017-06-05 11:13] VITALS: BP 113/55
--- NOTE | 2017-06-05 11:35 | PDOC ---
PROGRESS NOTES Chief Complaint Chief Complaint Cholelithiasis ASSESSMENT AND PLAN: 1. Cholelithiasis: with poss. dilation of CBD. s/p lap CCY on 06/04. MARINA drain with serosang fluid, leak 2. Pain control: narcotics PRN, apparently toelrating oxy 10 q4, not lasting long enough. decrease interval to 3h. 3. GERD: switched to PO PPI 4. Constipation: Narcotic induced. start miralax daily-bid PRN 5. COPD: no home meds 6. Fibromyalgia: on neurontin 7. OA: chronic LBP: cont home regimen 8. Dispo: home when cleared by surg History of Present Illness History of Present Illness c/w pain with oral meds wearing off in a couple of hours. tolerating PO Vitals Vitals Vital Signs Date Time Temp Pulse Resp B/P (MAP) Pulse Ox O2 Delivery O2 Flow Rate FiO2 06/05/17 11:13 97.9 90 20 113/55 (74) 90 Room Air 97.9 06/05/17 10:26 2.0 Physical Exam General: Alert, Oriented X3, Cooperative Heart: Regular rate Lungs: Clear Abdomen: Soft (tender bilateral upper quadrants) Extremities: No clubbing, No cyanosis Skin: No rashes Labs LABS Laboratory Tests Test 06/04/17 16:17 06/05/17 04:45 Glucose (Fingerstick) 175 mg/dL (70-99) White Blood Count 17.0 x10^3/uL (4.0-11.0) Red Blood Count 3.92 x10^6/uL (3.50-5.40) Hemoglobin 10.9 g/dL (12.0-15.5) Hematocrit 33.8 % (36.0-47.0) Mean Corpuscular Volume 86 fL (79-100) Mean Corpuscular Hemoglobin 28 pg (25-35) Mean Corpuscular Hemoglobin Concent 32 g/dL (31-37) Red Cell Distribution Width 14.9 % (11.5-14.5) Platelet Count 312 x10^3/uL (140-400) Neutrophils (%) (Auto) 80 % (31-73) Lymphocytes (%) (Auto) 12 % (24-48) Monocytes (%) (Auto) 9 % (0-9) Eosinophils (%) (Auto) 0 % (0-3) Basophils (%) (Auto) 0 % (0-3) Neutrophils # (Auto) 13.5 x10^3uL (1.8-7.7) Lymphocytes # (Auto) 1.9 x10^3/uL (1.0-4.8) Monocytes # (Auto) 1.5 x10^3/uL (0.0-1.1) Eosinophils # (Auto) 0.0 x10^3/uL (0.0-0.7) Basophils # (Auto) 0.0 x10^3/uL (0.0-0.2) Segmented Neutrophils % 85 % (35-66) Band Neutrophils % 5 % (0-9) Lymphocytes % 6 % (24-48) Monocytes % 4 % (0-10) Platelet Estimate Adequate (ADEQUATE) Anisocytosis Slight Sodium Level 141 mmol/L (136-145) Potassium Level 3.5 mmol/L (3.5-5.1) Chloride Level 105 mmol/L (98-107) Carbon Dioxide Level 25 mmol/L (21-32) Anion Gap 11 (6-14) Blood Urea Nitrogen 9 mg/dL (7-20) Creatinine 1.0 mg/dL (0.6-1.0) Estimated GFR (Cockcroft-Gault) 57.6 BUN/Creatinine Ratio 9 (6-20) Glucose Level 132 mg/dL (70-99) Calcium Level 8.6 mg/dL (8.5-10.1) Total Bilirubin 0.4 mg/dL (0.2-1.0) Aspartate Amino Transf (AST/SGOT) 42 U/L (15-37) Alanine Aminotransferase (ALT/SGPT) 48 U/L (14-59) Alkaline Phosphatase 104 U/L (46-116) Total Protein 7.2 g/dL (6.4-8.2) Albumin 2.8 g/dL (3.4-5.0) Albumin/Globulin Ratio 0.6 (1.0-1.7) PRAKASH MALDONADO MD Jun 05, 2017 11:35
[2017-06-05] MEDS ORDERED: oxyCODONE/APAP 5/325 1 TAB TABLET PO PRN (12:36)
[2017-06-05] MEDS: PANTOPRAZOLE 40 MG TABLET.DR. PO SCH (12:44)
--- NOTE | 2017-06-05 14:07 | PDOC ---
SURGICAL PROGRESS NOTE Subjective ruq pain--worse with coughing no n/v Vital Signs Vital Signs Date Time Temp Pulse Resp B/P (MAP) Pulse Ox O2 Delivery O2 Flow Rate FiO2 06/05/17 12:44 Room Air 06/05/17 11:13 97.9 90 20 113/55 (74) 90 97.9 06/05/17 10:26 2.0 I&O Intake and Output 06/05/17 07:00 Intake Total 990 ml Output Total 1325 ml Balance -335 ml Intake Oral 940 ml IV Total 50 ml Output Urine Total 1300 ml Drainage Total 25 ml General: Alert, Oriented X3, Cooperative, No acute distress Abdomen: Soft, Other (TTP incisional RUQ drain site, drain serosang ) Labs Laboratory Tests Test 06/03/17 17:10 06/03/17 20:30 06/04/17 07:05 06/04/17 07:29 Glucose (Fingerstick) 124 mg/dL (70-99) 123 mg/dL (70-99) 154 mg/dL (70-99) White Blood Count 15.1 x10^3/uL (4.0-11.0) Red Blood Count 4.27 x10^6/uL (3.50-5.40) Hemoglobin 11.7 g/dL (12.0-15.5) Hematocrit 36.5 % (36.0-47.0) Mean Corpuscular Volume 86 fL (79-100) Mean Corpuscular Hemoglobin 28 pg (25-35) Mean Corpuscular Hemoglobin Concent 32 g/dL (31-37) Red Cell Distribution Width 15.0 % (11.5-14.5) Platelet Count 341 x10^3/uL (140-400) Neutrophils (%) (Auto) 70 % (31-73) Lymphocytes (%) (Auto) 16 % (24-48) Monocytes (%) (Auto) 12 % (0-9) Eosinophils (%) (Auto) 1 % (0-3) Basophils (%) (Auto) 1 % (0-3) Neutrophils # (Auto) 10.5 x10^3uL (1.8-7.7) Lymphocytes # (Auto) 2.4 x10^3/uL (1.0-4.8) Monocytes # (Auto) 1.8 x10^3/uL (0.0-1.1) Eosinophils # (Auto) 0.2 x10^3/uL (0.0-0.7) Basophils # (Auto) 0.1 x10^3/uL (0.0-0.2) Sodium Level 138 mmol/L (136-145) Potassium Level 3.6 mmol/L (3.5-5.1) Chloride Level 103 mmol/L (98-107) Carbon Dioxide Level 25 mmol/L (21-32) Anion Gap 10 (6-14) Blood Urea Nitrogen 11 mg/dL (7-20) Creatinine 0.9 mg/dL (0.6-1.0) Estimated GFR (Cockcroft-Gault) 65.0 BUN/Creatinine Ratio 12 (6-20) Glucose Level 152 mg/dL (70-99) Calcium Level 8.5 mg/dL (8.5-10.1) Total Bilirubin 0.6 mg/dL (0.2-1.0) Aspartate Amino Transf (AST/SGOT) 20 U/L (15-37) Alanine Aminotransferase (ALT/SGPT) 30 U/L (14-59) Alkaline Phosphatase 110 U/L (46-116) Total Protein 7.3 g/dL (6.4-8.2) Albumin 3.1 g/dL (3.4-5.0) Albumin/Globulin Ratio 0.7 (1.0-1.7) Test 06/04/17 16:17 06/05/17 04:45 Glucose (Fingerstick) 175 mg/dL (70-99) White Blood Count 17.0 x10^3/uL (4.0-11.0) Red Blood Count 3.92 x10^6/uL (3.50-5.40) Hemoglobin 10.9 g/dL (12.0-15.5) Hematocrit 33.8 % (36.0-47.0) Mean Corpuscular Volume 86 fL (79-100) Mean Corpuscular Hemoglobin 28 pg (25-35) Mean Corpuscular Hemoglobin Concent 32 g/dL (31-37) Red Cell Distribution Width 14.9 % (11.5-14.5) Platelet Count 312 x10^3/uL (140-400) Neutrophils (%) (Auto) 80 % (31-73) Lymphocytes (%) (Auto) 12 % (24-48) Monocytes (%) (Auto) 9 % (0-9) Eosinophils (%) (Auto) 0 % (0-3) Basophils (%) (Auto) 0 % (0-3) Neutrophils # (Auto) 13.5 x10^3uL (1.8-7.7) Lymphocytes # (Auto) 1.9 x10^3/uL (1.0-4.8) Monocytes # (Auto) 1.5 x10^3/uL (0.0-1.1) Eosinophils # (Auto) 0.0 x10^3/uL (0.0-0.7) Basophils # (Auto) 0.0 x10^3/uL (0.0-0.2) Segmented Neutrophils % 85 % (35-66) Band Neutrophils % 5 % (0-9) Lymphocytes % 6 % (24-48) Monocytes % 4 % (0-10) Platelet Estimate Adequate (ADEQUATE) Anisocytosis Slight Sodium Level 141 mmol/L (136-145) Potassium Level 3.5 mmol/L (3.5-5.1) Chloride Level 105 mmol/L (98-107) Carbon Dioxide Level 25 mmol/L (21-32) Anion Gap 11 (6-14) Blood Urea Nitrogen 9 mg/dL (7-20) Creatinine 1.0 mg/dL (0.6-1.0) Estimated GFR (Cockcroft-Gault) 57.6 BUN/Creatinine Ratio 9 (6-20) Glucose Level 132 mg/dL (70-99) Calcium Level 8.6 mg/dL (8.5-10.1) Total Bilirubin 0.4 mg/dL (0.2-1.0) Aspartate Amino Transf (AST/SGOT) 42 U/L (15-37) Alanine Aminotransferase (ALT/SGPT) 48 U/L (14-59) Alkaline Phosphatase 104 U/L (46-116) Total Protein 7.2 g/dL (6.4-8.2) Albumin 2.8 g/dL (3.4-5.0) Albumin/Globulin Ratio 0.6 (1.0-1.7) Laboratory Tests Test 06/04/17 16:17 06/05/17 04:45 Glucose (Fingerstick) 175 mg/dL (70-99) White Blood Count 17.0 x10^3/uL (4.0-11.0) Red Blood Count 3.92 x10^6/uL (3.50-5.40) Hemoglobin 10.9 g/dL (12.0-15.5) Hematocrit 33.8 % (36.0-47.0) Mean Corpuscular Volume 86 fL (79-100) Mean Corpuscular Hemoglobin 28 pg (25-35) Mean Corpuscular Hemoglobin Concent 32 g/dL (31-37) Red Cell Distribution Width 14.9 % (11.5-14.5) Platelet Count 312 x10^3/uL (140-400) Neutrophils (%) (Auto) 80 % (31-73) Lymphocytes (%) (Auto) 12 % (24-48) Monocytes (%) (Auto) 9 % (0-9) Eosinophils (%) (Auto) 0 % (0-3) Basophils (%) (Auto) 0 % (0-3) Neutrophils # (Auto) 13.5 x10^3uL (1.8-7.7) Lymphocytes # (Auto) 1.9 x10^3/uL (1.0-4.8) Monocytes # (Auto) 1.5 x10^3/uL (0.0-1.1) Eosinophils # (Auto) 0.0 x10^3/uL (0.0-0.7) Basophils # (Auto) 0.0 x10^3/uL (0.0-0.2) Segmented Neutrophils % 85 % (35-66) Band Neutrophils % 5 % (0-9) Lymphocytes % 6 % (24-48) Monocytes % 4 % (0-10) Platelet Estimate Adequate (ADEQUATE) Anisocytosis Slight Sodium Level 141 mmol/L (136-145) Potassium Level 3.5 mmol/L (3.5-5.1) Chloride Level 105 mmol/L (98-107) Carbon Dioxide Level 25 mmol/L (21-32) Anion Gap 11 (6-14) Blood Urea Nitrogen 9 mg/dL (7-20) Creatinine 1.0 mg/dL (0.6-1.0) Estimated GFR (Cockcroft-Gault) 57.6 BUN/Creatinine Ratio 9 (6-20) Glucose Level 132 mg/dL (70-99) Calcium Level 8.6 mg/dL (8.5-10.1) Total Bilirubin 0.4 mg/dL (0.2-1.0) Aspartate Amino Transf (AST/SGOT) 42 U/L (15-37) Alanine Aminotransferase (ALT/SGPT) 48 U/L (14-59) Alkaline Phosphatase 104 U/L (46-116) Total Protein 7.2 g/dL (6.4-8.2) Albumin 2.8 g/dL (3.4-5.0) Albumin/Globulin Ratio 0.6 (1.0-1.7) Assessment/Plan s/p tobin continue abx, drain Problems: 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
[2017-06-05 15:00] VITALS: BP 122/58
[2017-06-05] MEDS ORDERED: BISACODYL 10 MG SUPP.RECT. PR PRN (16:30)
[2017-06-05] MEDS ORDERED: POLYETHYLENE GLYCOL 3350 17 GM PACKET. PO PRN (16:30)
[2017-06-05] MEDS ORDERED: DOCUSATE SODIUM 100 MG CAPSULE. PO PRN (16:30)
[2017-06-05 19:00] VITALS: BP 128/59
[2017-06-05 23:00] VITALS: BP 120/54
[2017-06-06 03:00] VITALS: BP 121/61
[2017-06-06] MEDS: PIPERACILLIN/TAZOBACTAM 3.375 GM in IV NORMAL SALINE 50ML 50 ML IV SCH ×2 (06:19→11:26)
[2017-06-06 07:00] VITALS: BP 132/58
[2017-06-06] MEDS: IPRATRPIUM/ALBUTEROL 0.5/2.5MG 3 ML NEBU. NEB SCH (07:04)
[2017-06-06] MEDS: PANTOPRAZOLE 40 MG TABLET.DR. PO SCH (09:02)
[2017-06-06 10:00] VITALS: BP 147/54
[2017-06-06 10:58] LABS: BASO # 0.1 x10^3/uL (0.0-0.2); BASO % 1 % (0-3); EOS % 4 % (0-3); HEMATOCRIT 32.1 % (36.0-47.0); HEMOGLOBIN 10.9 g/dL (12.0-15.5); LYMPH # 2.7 x10^3/uL (1.0-4.8); LYMPH % 23 % (24-48); MEAN CORPUSCULAR HEMOGLOBIN 29 pg (25-35); MEAN CORPUSCULAR HGB CONC 34 g/dL (31-37); MEAN CORPUSCULAR VOLUME 84 fL (79-100); MONO % 8 % (0-9); NEUT % 64 % (31-73); PLATELET COUNT 299 x10^3/uL (140-400); RED BLOOD COUNT 3.82 x10^6/uL (3.50-5.40); RED CELL DISTRIBUTION WIDTH 15.1 % (11.5-14.5); WHITE BLOOD COUNT 11.4 x10^3/uL (4.0-11.0)
[2017-06-06 11:06] LABS: ALBUMIN 2.9 g/dL (3.4-5.0); ALBUMIN/GLOBULIN RATIO 0.7 (1.0-1.7); CALCIUM 8.6 mg/dL (8.5-10.1); CREATININE 0.9 mg/dL (0.6-1.0); POTASSIUM 3.2 mmol/L (3.5-5.1); TOTAL BILIRUBIN 0.4 mg/dL (0.2-1.0); TOTAL PROTEIN 7.3 g/dL (6.4-8.2)
--- NOTE | 2017-06-06 11:28 | PDOC ---
SURGICAL PROGRESS NOTE Subjective doing well wants to go home Vital Signs Vital Signs Date Time Temp Pulse Resp B/P (MAP) Pulse Ox O2 Delivery O2 Flow Rate FiO2 06/06/17 10:00 99.1 98 18 147/54 (85) 89 Room Air 99.1 06/05/17 10:26 2.0 I&O Intake and Output 06/06/17 07:00 Intake Total 550 ml Output Total 20 ml Balance 530 ml Intake Oral 550 ml Drainage Total 20 ml # Voids 8 PATIENT HAS A SHINE: No General: Alert, Oriented X3, Cooperative, No acute distress Abdomen: Soft, Other (small amount of serosanguineous drainage in MARINA drain) Labs Laboratory Tests Test 06/04/17 16:17 06/05/17 04:45 06/06/17 10:15 Glucose (Fingerstick) 175 mg/dL (70-99) White Blood Count 17.0 x10^3/uL (4.0-11.0) 11.4 x10^3/uL (4.0-11.0) Red Blood Count 3.92 x10^6/uL (3.50-5.40) 3.82 x10^6/uL (3.50-5.40) Hemoglobin 10.9 g/dL (12.0-15.5) 10.9 g/dL (12.0-15.5) Hematocrit 33.8 % (36.0-47.0) 32.1 % (36.0-47.0) Mean Corpuscular Volume 86 fL (79-100) 84 fL (79-100) Mean Corpuscular Hemoglobin 28 pg (25-35) 29 pg (25-35) Mean Corpuscular Hemoglobin Concent 32 g/dL (31-37) 34 g/dL (31-37) Red Cell Distribution Width 14.9 % (11.5-14.5) 15.1 % (11.5-14.5) Platelet Count 312 x10^3/uL (140-400) 299 x10^3/uL (140-400) Neutrophils (%) (Auto) 80 % (31-73) 64 % (31-73) Lymphocytes (%) (Auto) 12 % (24-48) 23 % (24-48) Monocytes (%) (Auto) 9 % (0-9) 8 % (0-9) Eosinophils (%) (Auto) 0 % (0-3) 4 % (0-3) Basophils (%) (Auto) 0 % (0-3) 1 % (0-3) Neutrophils # (Auto) 13.5 x10^3uL (1.8-7.7) 7.3 x10^3uL (1.8-7.7) Lymphocytes # (Auto) 1.9 x10^3/uL (1.0-4.8) 2.7 x10^3/uL (1.0-4.8) Monocytes # (Auto) 1.5 x10^3/uL (0.0-1.1) 0.9 x10^3/uL (0.0-1.1) Eosinophils # (Auto) 0.0 x10^3/uL (0.0-0.7) 0.4 x10^3/uL (0.0-0.7) Basophils # (Auto) 0.0 x10^3/uL (0.0-0.2) 0.1 x10^3/uL (0.0-0.2) Segmented Neutrophils % 85 % (35-66) Band Neutrophils % 5 % (0-9) Lymphocytes % 6 % (24-48) Monocytes % 4 % (0-10) Platelet Estimate Adequate (ADEQUATE) Anisocytosis Slight Sodium Level 141 mmol/L (136-145) 142 mmol/L (136-145) Potassium Level 3.5 mmol/L (3.5-5.1) 3.2 mmol/L (3.5-5.1) Chloride Level 105 mmol/L (98-107) 105 mmol/L (98-107) Carbon Dioxide Level 25 mmol/L (21-32) 28 mmol/L (21-32) Anion Gap 11 (6-14) 9 (6-14) Blood Urea Nitrogen 9 mg/dL (7-20) 8 mg/dL (7-20) Creatinine 1.0 mg/dL (0.6-1.0) 0.9 mg/dL (0.6-1.0) Estimated GFR (Cockcroft-Gault) 57.6 65.0 BUN/Creatinine Ratio 9 (6-20) 9 (6-20) Glucose Level 132 mg/dL (70-99) 147 mg/dL (70-99) Calcium Level 8.6 mg/dL (8.5-10.1) 8.6 mg/dL (8.5-10.1) Total Bilirubin 0.4 mg/dL (0.2-1.0) 0.4 mg/dL (0.2-1.0) Aspartate Amino Transf (AST/SGOT) 42 U/L (15-37) 32 U/L (15-37) Alanine Aminotransferase (ALT/SGPT) 48 U/L (14-59) 48 U/L (14-59) Alkaline Phosphatase 104 U/L (46-116) 104 U/L (46-116) Total Protein 7.2 g/dL (6.4-8.2) 7.3 g/dL (6.4-8.2) Albumin 2.8 g/dL (3.4-5.0) 2.9 g/dL (3.4-5.0) Albumin/Globulin Ratio 0.6 (1.0-1.7) 0.7 (1.0-1.7) Laboratory Tests Test 06/06/17 10:15 White Blood Count 11.4 x10^3/uL (4.0-11.0) Red Blood Count 3.82 x10^6/uL (3.50-5.40) Hemoglobin 10.9 g/dL (12.0-15.5) Hematocrit 32.1 % (36.0-47.0) Mean Corpuscular Volume 84 fL (79-100) Mean Corpuscular Hemoglobin 29 pg (25-35) Mean Corpuscular Hemoglobin Concent 34 g/dL (31-37) Red Cell Distribution Width 15.1 % (11.5-14.5) Platelet Count 299 x10^3/uL (140-400) Neutrophils (%) (Auto) 64 % (31-73) Lymphocytes (%) (Auto) 23 % (24-48) Monocytes (%) (Auto) 8 % (0-9) Eosinophils (%) (Auto) 4 % (0-3) Basophils (%) (Auto) 1 % (0-3) Neutrophils # (Auto) 7.3 x10^3uL (1.8-7.7) Lymphocytes # (Auto) 2.7 x10^3/uL (1.0-4.8) Monocytes # (Auto) 0.9 x10^3/uL (0.0-1.1) Eosinophils # (Auto) 0.4 x10^3/uL (0.0-0.7) Basophils # (Auto) 0.1 x10^3/uL (0.0-0.2) Sodium Level 142 mmol/L (136-145) Potassium Level 3.2 mmol/L (3.5-5.1) Chloride Level 105 mmol/L (98-107) Carbon Dioxide Level 28 mmol/L (21-32) Anion Gap 9 (6-14) Blood Urea Nitrogen 8 mg/dL (7-20) Creatinine 0.9 mg/dL (0.6-1.0) Estimated GFR (Cockcroft-Gault) 65.0 BUN/Creatinine Ratio 9 (6-20) Glucose Level 147 mg/dL (70-99) Calcium Level 8.6 mg/dL (8.5-10.1) Total Bilirubin 0.4 mg/dL (0.2-1.0) Aspartate Amino Transf (AST/SGOT) 32 U/L (15-37) Alanine Aminotransferase (ALT/SGPT) 48 U/L (14-59) Alkaline Phosphatase 104 U/L (46-116) Total Protein 7.3 g/dL (6.4-8.2) Albumin 2.9 g/dL (3.4-5.0) Albumin/Globulin Ratio 0.7 (1.0-1.7) Assessment/Plan POD 2 l/c home today f/u next week Problems: JABARI WAYNE MD Jun 06, 2017 11:28
--- NOTE | 2017-06-06 12:50 | PDOC3 ---
Discharge Summary [facility] Date of Admission: Jun 03, 2017 Discharge Date: Jun 06, 2017 Admitting Diagnosis 1. Cholelithiasis: with poss. dilation of CBD. s/p lap CCY on 06/04 2. Pain contro 3. GERD: switched to PO PPI 4. Constipation 5. COPD: 6. Fibromyalgia: on neurontin Problems: CONSULTS sx Brief Hospital Course Ms. Petty is a 57 old F, comes for abd pain, underwent lap cholecystectomy. pt now has flatus, no BM, MARINA drainage dark sangueous , 20cc overnight. + nausea , no vomiting. eats ok. labs better ok to dc as per sx, will remove Marina. dc home dc time 35min General: Alert, Oriented X3, Cooperative Heart: Regular rate Lungs: Clear Abdomen: Soft (tender bilateral upper quadrants) decreased bs. 1Jp at RUQ. Extremities: No clubbing, No cyanosis Skin: No rashes Problems: Disposition home CONDITION AT DISCHARGE: Improved Diet gi soft Scheduled Aspirin (Aspirin), 325 TAB PO DAILY, (Reported) Atorvastatin Calcium (Atorvastatin Calcium), 1 TAB PO QHS, (Reported) Bupropion Hcl (Wellbutrin Xl), 1 TAB PO DAILY, (Reported) Cyclobenzaprine Hcl (Cyclobenzaprine Hcl), 1 TAB PO QHS, (Reported) Gabapentin (Gabapentin), 300 MG PO TID, (Reported) Nifedipine (Nifedipine Er), 1 TAB PO DAILY, (Reported) Omeprazole (Omeprazole), 1 CAP PO BID, (Reported) Sucralfate (Sucralfate), 1 TAB PO QID, (Reported) Tramadol Hcl (Tramadol Hcl), 1 TAB PO BID, (Reported) Follow Up sx next week. DEDE BHATIA MD Jun 06, 2017 12:50
--- NOTE | 2017-06-06 13:04 | PDOC ---
Subjective: Subjective: Feeling better. Pain better, nausea better. Tolerating PO. Flatus, no stool. Going home today. Objective: Vital Signs: Vital Signs Date Time Temp Pulse Resp B/P (MAP) Pulse Ox O2 Delivery O2 Flow Rate FiO2 06/06/17 10:00 99.1 98 18 147/54 (85) 89 Room Air 99.1 06/05/17 10:26 2.0 Labs: Laboratory Tests Test 06/06/17 10:15 White Blood Count 11.4 x10^3/uL Red Blood Count 3.82 x10^6/uL Hemoglobin 10.9 g/dL Hematocrit 32.1 % Mean Corpuscular Volume 84 fL Mean Corpuscular Hemoglobin 29 pg Mean Corpuscular Hemoglobin Concent 34 g/dL Red Cell Distribution Width 15.1 % Platelet Count 299 x10^3/uL Neutrophils (%) (Auto) 64 % Lymphocytes (%) (Auto) 23 % Monocytes (%) (Auto) 8 % Eosinophils (%) (Auto) 4 % Basophils (%) (Auto) 1 % Neutrophils # (Auto) 7.3 x10^3uL Lymphocytes # (Auto) 2.7 x10^3/uL Monocytes # (Auto) 0.9 x10^3/uL Eosinophils # (Auto) 0.4 x10^3/uL Basophils # (Auto) 0.1 x10^3/uL Sodium Level 142 mmol/L Potassium Level 3.2 mmol/L Chloride Level 105 mmol/L Carbon Dioxide Level 28 mmol/L Anion Gap 9 Blood Urea Nitrogen 8 mg/dL Creatinine 0.9 mg/dL Estimated GFR (Cockcroft-Gault) 65.0 BUN/Creatinine Ratio 9 Glucose Level 147 mg/dL Calcium Level 8.6 mg/dL Total Bilirubin 0.4 mg/dL Aspartate Amino Transf (AST/SGOT) 32 U/L Alanine Aminotransferase (ALT/SGPT) 48 U/L Alkaline Phosphatase 104 U/L Total Protein 7.3 g/dL Albumin 2.9 g/dL Albumin/Globulin Ratio 0.7 PE: GEN: NAD LUNGS: CTAB HEART: RRR ABD: less tender, BS+ NEURO/PSYCH: A & O 3 A/P: Calculous cholecystitis s/p cholecystectomy 06/04/17 -- Improved. DC per primary/surgery. Follow-up w/ Dr. Arrieta, established rate marker, re: gastroparesis. Suggested Miralax for constipation if needed. MARIE VIEIRA Jun 06, 2017 13:04
[2017-06-06] MEDS ORDERED: POTASSIUM CHLORIDE 20 MEQ TABLET.ER. PO ONE (13:30)
[2017-06-06] MEDS ORDERED: AMOXICILLIN/K CLAV 875/125MG TABLET. PO SCH (13:30)
--- NOTE | 2017-06-06 16:59 | PATHOLOGY ---
PATHOLOGY REPORT * * * * * * * * FINAL DIAGNOSIS: Gallbladder, laparoscopic cholecystectomy: - Cholelithiasis. - Acute necrotizing and chronic cholecystitis. (JPM:roger; 06/06/2017) COMMENT: There is no evidence of malignancy. REPORT ELECTRONICALLY SIGNED BY: Thomas Alexis M.D. DATE/TIME: 06/06/2017 16:58 * * * * * * * * GROSS PATHOLOGY: Received in formalin labeled "Mallory Tuttle, gallbladder and contents," is a 5.8 x 2.8 x 1.8 cm, intact gallbladder with acuña pelayo serosal surfaces. Opening the gallbladder reveals dark green velvety mucosa and an average wall thickness of 0.6 cm. Calculi are present and no masses are noted grossly. All Terrain Vehicle Technician sections from the body and fundus are submitted along with the proximal margin in cassette A1. (JPM; 06/05/17) INITIAL CPT CODE(S): A; 62262 Professional services performed [place] [address] Technical services performed by [facility] at [address] [place] [address]. SPECIMEN(S) RECEIVED: A.Gallbladder and contents CLINICAL HISTORY: Cholelithiasis PATIENT: MALLORY TUTTLE /AGE: 402/12/1960 (Age: 57) PATIENT #: [id number] ALT CASE #: SPECIMEN COLLECTION DATE: 06/04/2017 SPECIMEN RECEIVED DATE: 06/05/2017 [facility] - [address] [place] [address] - PHONE: [phone] * * * END OF REPORT * * *
== END 2017-06-06 14:16 | disposition home or self-care (01) | DRG 418 ==
LOC: 4 NORTH 13:45
PROVIDERS: ADMIT Internal Medicine; ATTEND Internal Medicine
PROC: 0FT44ZZ Resection of Gallbladder, Percutaneous Endoscopic Approach (ICD-10-PCS; principal; 2017-06-03)
DX: K80.66 Calculus of gallbladder and bile duct with acute and chronic cholecystitis without obstruction (principal); E44.1 Mild protein-calorie malnutrition; D64.9 Anemia, unspecified; E66.9 Obesity, unspecified; Z68.34 Body mass index [BMI] 34.0-34.9, adult; I73.00 Raynaud's syndrome without gangrene; J44.9 Chronic obstructive pulmonary disease, unspecified; K21.9 Gastro-esophageal reflux disease without esophagitis; K29.70 Gastritis, unspecified, without bleeding; M19.90 Unspecified osteoarthritis, unspecified site; K31.84 Gastroparesis; K59.00 Constipation, unspecified; K66.0 Peritoneal adhesions (postprocedural) (postinfection); K82.8 Other specified diseases of gallbladder; M79.7 Fibromyalgia; Z82.49 Family history of ischemic heart disease and other diseases of the circulatory system; Z79.899 Other long term (current) drug therapy; Z90.710 Acquired absence of both cervix and uterus
CPT/HCPCS: 36415; 80053; 82962; 85007; 85027; 94250; 94640; 94760; C1769; J0780; J1100; J1170; J1885; J2001; J2405; J2543; J2704; J2710; J3010; J3490; J7030; J7613; J7620; Q9967; S0028